=== PATIENT | female | born 1980 | race Caucasian/White ===

== ENCOUNTER 2018-02-25 16:50 | Emergency (ER) | payer OTHER ==
[2018-02-25 16:59] VITALS: BP 156/86; PULSE 89; RESP 16; TEMP 98.9; O2SAT 98
[2018-02-25 19:21] VITALS: BP 131/93; PULSE 76; RESP 20; O2SAT 98
--- NOTE | 2018-02-25 19:41 | PD ---
HPI Chief Complaint: Psychiatric Symptoms Time Seen by Provider: 19:14 Travel History International Travel<30 days: No Contact w/Intl Traveler<30days: No Traveled to known affect area: No History of Present Illness HPI 37-year-old female presents emergency department on a voluntary basis for psychological evaluation. Patient states that she has been feeling increasingly depressed. She has been off her medications. She reports allegedly a unintentional Tylenol overdose last month and was treated at [facility]. She states that she has a history of schizoaffective disorder, borderline personality disorder and possibly hemochromatosis. She admits to having suicidal thoughts at times but has no current plan. No homicidal ideation. She states that she always thinks about hurting someone but has not acutely homicidal. She states that she has not been sleeping. She rents a room at a friend's house. Her daughter lives in [place] at her aunt's house. Patient denies any toxic ingestions. She denies any medical complaints at this time other than being depressed. She denies . He does smoke, she has been drinking more excessively as of late. She does smoke marijuana. [facility] Past Medical History Narrative Medical Schizoaffective disorder, borderline personality disorder, possible hemochromatosis, cervical dysplasia, carpal tunnel, unintentional Tylenol overdose Tetanus Vaccination: < 5 Years ?: Not LMP: Nexplanon Past Surgical History Narrative Surgical Surgical procedure for cervical dysplasia. Questionable LEEP Social History Alcohol Use: Yes Tobacco Use: Yes Substance Use: Yes Allergies-Medications (Allergen,Severity, Reaction): Coded Allergies: Sulfa (Sulfonamide Antibiotics) (Verified Allergy, Unknown, 02/25/18) sertraline (Verified Allergy, Unknown, 02/25/18) tramadol (Verified Allergy, Unknown, 02/25/18) Reported Meds & Prescriptions Reported Meds & Active Scripts Active Reported Zyprexa (Olanzapine) 20 Mg Tab 20 Mg PO DAILY Klonopin (Clonazepam) 2 Mg Tab 2 Mg PO TID Prozac (Fluoxetine HCl) 20 Mg Cap 20 Mg PO DAILY Gabapentin 800 Mg Tab 800 Mg PO TID Review of Systems General / Constitutional: No: Fever Eyes: No: Visual changes HENT: No: Headaches Cardiovascular: No: Chest Pain or Discomfort Respiratory: No: Shortness of Breath Gastrointestinal: No: Abdominal Pain Genitourinary: No: Dysuria Musculoskeletal: No: Pain Skin: No Rash Neurologic: No: Weakness Psychiatric: Positive: Depression, Suicidal Ideations, Mood Disorder, Substance Abuse, No: Anxiety, Disorder of Thought, Homicidal Ideation Endocrine: No: Polydipsia Hematologic/Lymphatic: No: Easy Bruising Physical Exam Narrative GENERAL: Well-nourished, well-developed patient. SKIN: Warm and dry. HEAD: Normocephalic and atraumatic. EYES: No scleral icterus. No injection or drainage. ENT: No nasal drainage noted. Mucous membranes pink. Airway patent. NECK: Supple, trachea midline. Moves head freely without obvious discomfort. CARDIOVASCULAR: Regular rate and rhythm without murmurs, gallops, or rubs. RESPIRATORY: Breath sounds equal bilaterally. No accessory muscle use. GASTROINTESTINAL: Abdomen soft, non-tender, nondistended. EXTREMITIES: No cyanosis or edema. BACK: Nontender without obvious deformity. No CVA tenderness. NEURO: Patient is alert and oriented. no sensorimotor deficits. Nonfocal. Normal speech. PSYCH: No delusions. No auditory or visual hallucinations. Data Data Last Documented VS Vital Signs Date Time Temp Pulse Resp B/P (MAP) Pulse Ox O2 Delivery O2 Flow Rate FiO2 02/26/18 00:41 97.7 92 18 117/57 (77) 98 Room Air Orders Orders Diet Regular Basic (02/26/18 Breakfast) Psych Screen (02/25/18 19:30) Complete Blood Count With Diff (02/25/18 19:35) Comprehensive Metabolic Panel (02/25/18 19:35) Thyroid Stimulating Hormone (02/25/18 19:35) Ed Urine Pregnancytest Poc (02/25/18 19:35) Drug Screen, Random Urine (02/25/18 19:35) Alcohol (Ethanol) (02/25/18 19:35) Salicylates (Aspirin) (02/25/18 19:35) Tylenol (Acetaminophen) (02/25/18 19:35) Diet Regular Basic (02/25/18 Breakfast) Labs Laboratory Tests Test 02/25/18 22:00 02/25/18 23:38 Urine Opiates Screen NEG Urine Barbiturates Screen NEG Urine Amphetamines Screen POS Urine Benzodiazepines Screen POS Urine Cocaine Screen POS Urine Cannabinoids Screen POS White Blood Count 6.5 TH/MM3 Red Blood Count 4.57 MIL/MM3 Hemoglobin 14.0 GM/DL Hematocrit 40.9 % Mean Corpuscular Volume 89.4 FL Mean Corpuscular Hemoglobin 30.5 PG Mean Corpuscular Hemoglobin Concent 34.2 % Red Cell Distribution Width 14.3 % Platelet Count 362 TH/MM3 Mean Platelet Volume 6.8 FL Neutrophils (%) (Auto) 52.8 % Lymphocytes (%) (Auto) 37.0 % Monocytes (%) (Auto) 6.4 % Eosinophils (%) (Auto) 3.1 % Basophils (%) (Auto) 0.7 % Neutrophils # (Auto) 3.4 TH/MM3 Lymphocytes # (Auto) 2.4 TH/MM3 Monocytes # (Auto) 0.4 TH/MM3 Eosinophils # (Auto) 0.2 TH/MM3 Basophils # (Auto) 0.0 TH/MM3 CBC Comment DIFF FINAL Differential Comment Blood Urea Nitrogen 13 MG/DL Creatinine 0.98 MG/DL Random Glucose 110 MG/DL Total Protein 7.6 GM/DL Albumin 4.0 GM/DL Calcium Level 8.9 MG/DL Alkaline Phosphatase 138 U/L Aspartate Amino Transf (AST/SGOT) 23 U/L Alanine Aminotransferase (ALT/SGPT) 48 U/L Total Bilirubin 0.5 MG/DL Sodium Level 142 MEQ/L Potassium Level 3.5 MEQ/L Chloride Level 110 MEQ/L Carbon Dioxide Level 22.3 MEQ/L Anion Gap 10 MEQ/L Estimat Glomerular Filtration Rate 65 ML/MIN Thyroid Stimulating Hormone 3rd Gen 0.454 uIU/ML Salicylates Level LESS THAN 1.7 MG/DL Acetaminophen Level LESS THAN 2.0 MCG/ML Ethyl Alcohol Level LESS THAN 3 MG/DL MDM Medical Decision Making Medical Screen Exam Complete: Yes Emergency Medical Condition: Yes Medical Record Reviewed: Yes Interpretation(s) Laboratory Tests Test 02/25/18 22:00 02/25/18 23:38 Urine Opiates Screen NEG Urine Barbiturates Screen NEG Urine Amphetamines Screen POS Urine Benzodiazepines Screen POS Urine Cocaine Screen POS Urine Cannabinoids Screen POS White Blood Count 6.5 TH/MM3 Red Blood Count 4.57 MIL/MM3 Hemoglobin 14.0 GM/DL Hematocrit 40.9 % Mean Corpuscular Volume 89.4 FL Mean Corpuscular Hemoglobin 30.5 PG Mean Corpuscular Hemoglobin Concent 34.2 % Red Cell Distribution Width 14.3 % Platelet Count 362 TH/MM3 Mean Platelet Volume 6.8 FL Neutrophils (%) (Auto) 52.8 % Lymphocytes (%) (Auto) 37.0 % Monocytes (%) (Auto) 6.4 % Eosinophils (%) (Auto) 3.1 % Basophils (%) (Auto) 0.7 % Neutrophils # (Auto) 3.4 TH/MM3 Lymphocytes # (Auto) 2.4 TH/MM3 Monocytes # (Auto) 0.4 TH/MM3 Eosinophils # (Auto) 0.2 TH/MM3 Basophils # (Auto) 0.0 TH/MM3 CBC Comment DIFF FINAL Differential Comment Blood Urea Nitrogen 13 MG/DL Creatinine 0.98 MG/DL Random Glucose 110 MG/DL Total Protein 7.6 GM/DL Albumin 4.0 GM/DL Calcium Level 8.9 MG/DL Alkaline Phosphatase 138 U/L Aspartate Amino Transf (AST/SGOT) 23 U/L Alanine Aminotransferase (ALT/SGPT) 48 U/L Total Bilirubin 0.5 MG/DL Sodium Level 142 MEQ/L Potassium Level 3.5 MEQ/L Chloride Level 110 MEQ/L Carbon Dioxide Level 22.3 MEQ/L Anion Gap 10 MEQ/L Estimat Glomerular Filtration Rate 65 ML/MIN Thyroid Stimulating Hormone 3rd Gen 0.454 uIU/ML Salicylates Level LESS THAN 1.7 MG/DL Acetaminophen Level LESS THAN 2.0 MCG/ML Ethyl Alcohol Level LESS THAN 3 MG/DL Differential Diagnosis MDM: High Differential diagnoses: Schizophrenia, schizoaffective disorder, bipolar, anxiety, depression, adjustment reaction, mood disorder NOS, ODD, depressive disorder NOS, substance induced mood disorder,infection,electrolyte abnormality , malingering. Narrative Course Mental health screening discussed with the patient. Psychiatric screen ordered. The patient has been medically cleared. This is medical clearance for psychiatric admission, polysubstance abuse Diagnosis Primary Impression: Medical clearance for psychiatric admission Additional Impression: Polysubstance abuse Condition: Stable Giles Huston Feb 25, 2018 19:41
[2018-02-25] MEDS ORDERED: KLON2TAB PO (20:25)
[2018-02-25] MEDS ORDERED: GABA800T PO (20:25)
[2018-02-25] MEDS ORDERED: PROZ20CA11 PO (20:25)
[2018-02-25] MEDS ORDERED: ZYPR20TA PO (20:25)
[2018-02-26 00:06] LABS: AUTOMATED NEUTROPHIL # 3.4 TH/MM3 (1.8-7.7); BASOPHIL % 0.7 % (0.0-2.0); EOSINOPHIL # 0.2 TH/MM3 (0-0.4); EOSINOPHIL % 3.1 % (0.0-4.0); HEMATOCRIT 40.9 % (35.0-46.0); LYMPHOCYTE # 2.4 TH/MM3 (1.0-4.8); MEAN CELL VOLUME 89.4 FL (80.0-100.0); MEAN CORPUSCULAR HEMOGLOBIN 30.5 PG (27.0-34.0); MEAN CORPUSCULAR HGB CONC 34.2 % (32.0-36.0); MEAN PLATELET VOLUME 6.8 FL (7.0-11.0); MONO % 6.4 % (0.0-8.0); MONOCYTE # 0.4 TH/MM3 (0-0.9); NEUT % 52.8 % (16.0-70.0); PLATELET COUNT 362 TH/MM3 (150-450); RED BLOOD COUNT 4.57 MIL/MM3 (4.00-5.30); RED CELL DISTRIBUTION WIDTH 14.3 % (11.6-17.2); WHITE BLOOD COUNT 6.5 TH/MM3 (4.0-11.0)
[2018-02-26 00:41] VITALS: BP 117/57; PULSE 92; RESP 18; TEMP 97.7; O2SAT 98
[2018-02-26 00:42] LABS: ALKALINE PHOSPHATASE 138 U/L (45-117); ALT (GPT) 48 U/L (10-53); AST (GOT) 23 U/L (15-37); BICARBONATE 22.3 MEQ/L (21.0-32.0); BLOOD UREA NITROGEN 13 MG/DL (7-18); CALCIUM 8.9 MG/DL (8.5-10.1); CHLORIDE 110 MEQ/L (98-107); CREATININE 0.98 MG/DL (0.50-1.00); GLOMERULAR FILTRATION RATE 65 ML/MIN (>89); GLUCOSE,RANDOM 110 MG/DL (74-106); SODIUM (NA) 142 MEQ/L (136-145); TOTAL BILIRUBIN ADULT 0.5 MG/DL (0.2-1.0); TOTAL PROTEIN 7.6 GM/DL (6.4-8.2)
[2018-02-26 00:43] LABS: ACETAMINOPHEN LESS THAN 2.0 MCG/ML (10.0-30.0)
[2018-02-26 04:49] VITALS: BP 140/67; PULSE 72; RESP 18; TEMP 98; O2SAT 99
[2018-02-26 11:31] VITALS: BP 132/82; PULSE 80; RESP 16; TEMP 98.5; O2SAT 98
--- NOTE | 2018-02-26 13:51 | PD ---
History of Present Illness Chief Complaint: Psychiatric Symptoms Time Seen by Provider: 13:10 Travel History International Travel<30 Days: No Contact w/Intl Traveler<30days: No Known affected area: No Legal Status Legal Status: Voluntary History of Present Illness: History of Present Illness HPI 37-year-old, single female with reported history of antisocial personality disorder, anxiety disorder, depressive disorder presenting to [facility] emergency department on a voluntary basis for psychological evaluation. Patient states that she has been feeling increasingly depressed as well as anxious since she ran out of her medications 2 weeks ago. Patient provides inconsistent and vague symptoms to this provider. She appears to be medication seeking and more specifically seeking benzos. She states that she had been taking gabapentin, Klonopin, Zyprexa, and Ambien but that she has not had any money to refill her medications. She then later states that she has a prescriptions but that her friend has them in her possession. She then states that she has not been able to get the Klonopin in the last several weeks. I have asked her about services at [facility] to help her get her medications and she tells me that she will be able to go there because he will not prescribed the gabapentin and the Klonopin. Patient has been getting her medications from a PCP by the name of Dr. Kilpatrick in [facility]. Patient was monitor and secure environment and presented no suicidality and no homicidality. Patient's current toxicology is positive for amphetamines, benzos , cocaine, and cannabinoids. She denied that she used any substances other than marijuana and alcohol. Lab results are also inconsistent with her reporting that she had run out of Klonopin several weeks ago. Patient was seen with Frank, senior construction manager. Alert, oriented, dressed in [facility]. Antisocial personality traits are evident. Initially patient was angry and was asking to be discharged. She did not present any evidence of any psychosis or wilmar. Patient makes vague statements about always wanting to hurt other people but she has not no one in particular. She goes on to state that other people who just do things to irritate her in general. She has no suicidal ideation, intent or plan. Patient's goal is to be able to get back on her medication specifically the Klonopin. She is aware of [facility] as well as [facility] for psychiatric follow-up [facility] Past Medical History Tetanus Vaccination: < 5 Years ?: Not LMP: Nexplanon Psychiatric History Psychiatric History Hx Psychiatric Treatment: Pt was in patient psych facility in [place] 3 years ago after suicide attempt. Pt received psych medications at the [facility]. The patient reports she was admitted to [facility] several weeks ago after an overdose of Tylenol. History of Inpatient Treatment: Yes Guns or firearms in home: No Social History Born in [place]. Has been in [place] for 3 years. She lives with a friend. Unemployed and states has not worked in the past 15 years. She states she has a pending disability claim. Patient with past history of incarceration for unknown charges. Hx Alcohol Use: Yes Hx Tobacco Use: Yes Hx Substance Use: Yes Substance Use Type: Alcohol, Marijuana, Amphetamines-Stimulants, Benzos (Valium ,Xanax), Heroin, Cocaine Other Substances Used: Pt states she has used "everything." Hx of Substance Use Treatment: No Family Psychiatric History None reported Allergies-Medications (Allergen,Severity, Reaction): Coded Allergies: Sulfa (Sulfonamide Antibiotics) (Verified Allergy, Unknown, 02/25/18) sertraline (Verified Allergy, Unknown, 02/25/18) tramadol (Verified Allergy, Unknown, 02/25/18) Reported Meds & Prescriptions Reported Meds & Active Scripts Active Reported Zyprexa (Olanzapine) 20 Mg Tab 20 Mg PO DAILY Klonopin (Clonazepam) 2 Mg Tab 2 Mg PO TID Prozac (Fluoxetine HCl) 20 Mg Cap 20 Mg PO DAILY Gabapentin 800 Mg Tab 800 Mg PO TID Review of Systems Psychiatric: COMPLAINS OF: Mood changes Except as stated in HPI: all other systems reviewed are Neg Mental Status Examination Appearance: Appropriate Consciousness: Alert Orientation: x4 Motor Activity: Normal gait Speech: Unremarkable Language: Adequate Fund of Knowledge: Adequate Attention and Concentration: Adequate Memory: Unremarkable Mood: Appropriate, Angry Affect: Irritable Thought Process & Associations: Intact, Logical, Goal directed Thought Content: Appropriate Hallucination Type: None Delusion Type: None Suicidal Ideation: No Suicidal Plan: No Suicidal Intention: No Homicidal Ideation: No Homicidal Plan: No Homicidal Intention: No Insight: Poor Judgment: Impulsive MDM Medical Decision Making Medical Record Reviewed: Yes Assessment/Plan 37-year-old, single female with reported history of antisocial personality disorder, anxiety disorder, depressive disorder presenting to [facility] emergency department on a voluntary basis for psychological evaluation. Patient states that she has been feeling increasingly depressed as well as anxious since she ran out of her medications 2 weeks ago. Patient provides inconsistent and vague symptoms to this provider. She appears to be medication seeking and more specifically seeking benzos. Patient also denied using any substances yet her toxicology is positive for amphetamines, benzos, cocaine, cannabinoids. The patient was not presenting any psychosis, no wilmar or hypomania. No suicidal or homicidal ideation, intent or plan. At this time the patient will be discharged from the emergency department she is advised to follow up with [facility] in [facility] as well as [facility]. No prescriptions are provided for her at this time. Orders Orders Diet Regular Basic (02/26/18 Breakfast) Psych Screen (02/25/18 19:30) Complete Blood Count With Diff (02/25/18 19:35) Comprehensive Metabolic Panel (02/25/18 19:35) Thyroid Stimulating Hormone (02/25/18 19:35) Ed Urine Pregnancytest Poc (02/25/18 19:35) Drug Screen, Random Urine (02/25/18 19:35) Alcohol (Ethanol) (02/25/18 19:35) Salicylates (Aspirin) (02/25/18 19:35) Tylenol (Acetaminophen) (02/25/18 19:35) Diet Regular Basic (02/25/18 Breakfast) Diet Regular Basic (02/26/18 Lunch) Results Vital Signs Date Time Temp Pulse Resp B/P (MAP) Pulse Ox O2 Delivery O2 Flow Rate FiO2 02/26/18 11:31 98.5 80 16 132/82 (99) 98 Room Air 02/26/18 04:49 98.0 72 18 140/67 (91) 99 Room Air 02/26/18 00:41 97.7 92 18 117/57 (77) 98 Room Air 02/25/18 19:21 76 20 131/93 (106) 98 Room Air 02/25/18 16:59 98.9 89 16 156/86 (109) 98 Laboratory Tests Test 02/25/18 22:00 02/25/18 23:38 Urine Opiates Screen NEG Urine Barbiturates Screen NEG Urine Amphetamines Screen POS Urine Benzodiazepines Screen POS Urine Cocaine Screen POS Urine Cannabinoids Screen POS White Blood Count 6.5 Red Blood Count 4.57 Hemoglobin 14.0 Hematocrit 40.9 Mean Corpuscular Volume 89.4 Mean Corpuscular Hemoglobin 30.5 Mean Corpuscular Hemoglobin Concent 34.2 Red Cell Distribution Width 14.3 Platelet Count 362 Mean Platelet Volume 6.8 Neutrophils (%) (Auto) 52.8 Lymphocytes (%) (Auto) 37.0 Monocytes (%) (Auto) 6.4 Eosinophils (%) (Auto) 3.1 Basophils (%) (Auto) 0.7 Neutrophils # (Auto) 3.4 Lymphocytes # (Auto) 2.4 Monocytes # (Auto) 0.4 Eosinophils # (Auto) 0.2 Basophils # (Auto) 0.0 CBC Comment DIFF FINAL Differential Comment Blood Urea Nitrogen 13 Creatinine 0.98 Random Glucose 110 Total Protein 7.6 Albumin 4.0 Calcium Level 8.9 Alkaline Phosphatase 138 Aspartate Amino Transf (AST/SGOT) 23 Alanine Aminotransferase (ALT/SGPT) 48 Total Bilirubin 0.5 Sodium Level 142 Potassium Level 3.5 Chloride Level 110 Carbon Dioxide Level 22.3 Anion Gap 10 Estimat Glomerular Filtration Rate 65 Thyroid Stimulating Hormone 3rd Gen 0.454 Salicylates Level LESS THAN 1.7 Acetaminophen Level LESS THAN 2.0 Ethyl Alcohol Level LESS THAN 3 Diagnosis Primary Impression: Medical clearance for psychiatric admission Additional Impressions: Polysubstance abuse Antisocial personality disorder Psychiatrically Cleared: Yes Med/ Other Pt Specific Info: No Meds Exist/No RX given Disposition: 01 DISCHARGE HOME Condition: Stable Problem Qualifiers [employer] Feb 26, 2018 13:51
== END 2018-02-26 14:09 | disposition home or self-care (01) ==
LOC: NEPJ 16:50
DX: F19.10 Other psychoactive substance abuse, uncomplicated (principal); F60.2 Antisocial personality disorder; F12.90 Cannabis use, unspecified, uncomplicated
CPT/HCPCS: 80053; 80307; 84443; 84703; 85025; 99283